=== PATIENT | female | born 2000 | race Caucasian/White ===

== ENCOUNTER → 2022-07-16 | Outpatient (CLI) | payer OTHER ==
--- NOTE | 2022-07-16 13:28 | XR ---
EXAMINATION TYPE: XR wrist complete LT DATE OF EXAM: 07/16/2022 12:47 PM INDICATION: Patient age:Female; 22 years old; Reason for study: M25.532; COMPARISON: None TECHNIQUE: left wrist was examined in the. Frontal, navicular, lateral, and oblique. FINDINGS: No acute osseous pathology, joint dislocation, or joint effusion. No evidence of any soft tissue swelling is seen. IMPRESSION: No acute osseous pathology.
--- NOTE | 2022-07-16 14:01 | XR ---
EXAMINATION TYPE: XR knee complete bilateral DATE OF EXAM: 07/16/2022 12:47 PM INDICATION: Patient age:Female; 22 years old; Reason for study: M17.0; COMPARISON: None. TECHNIQUE: The Bilateral knee(s) were examined in Frontal, lateral and oblique and sunrise patellar p rojections. FINDINGS: No evidence of any acute osseous pathology, soft tissue swelling, or joint effusion is no agustín. IMPRESSION: No acute osseous pathology.
== END | disposition home or self-care (01) ==
LOC: RADXRMAIN 11:55
PROVIDERS: ATTEND Family Medicine
DX: M17.0 Bilateral primary osteoarthritis of knee (principal); M25.532 Pain in left wrist

== ENCOUNTER → 2022-08-07 | Outpatient (CLI) | payer OTHER ==
--- NOTE | 2022-08-10 22:01 | MR ---
EXAMINATION TYPE: MR wrist LT wo con DATE OF EXAM: 08/07/2022 COMPARISON: Radiograph 07/16/2022 HISTORY: 22-year-old female M25.532 Left wrist pain for 2 months due to injury. TECHNIQUE: Multiplanar, multisequence images of the left wrist were obtained without IV contrast. FINDINGS: The radiocarpal and distal radial ulnar joint as well as the midcarpal compartment appear intact. Physiologic radiocarpal joint fluid. The scapholunate and lunotriquetral ligaments appear intact. The dorsal extensor and volar flexor tendons appear satisfactory. Normal caliber to the median nerve at the distal wrist crease. The TFC appears intact. No acute or healing fracture is identified. IMPRESSION: No specific abnormality of the left wrist identified by MRI.
== END | disposition home or self-care (01) ==
LOC: RADMRIMAIN 12:37
PROVIDERS: ATTEND Family Medicine
DX: M25.532 Pain in left wrist (principal)